=== PATIENT | female | born 1945 | race Two or more races ===

== ENCOUNTER 2016-07-14 13:20 | Emergency (ER) | payer MEDICARE, OTHER ==
[~2016-07-14] VITALS: Ht 165.1 cm; Wt 89.0 kg
[~2016-07-14 13:20] MED LIST: ARIP2TAB8 PO; ASPI-664 PO; CRES10 PO; ERGO500014 PO; ESCI10TA48 PO; LEVO88TA PO; VENL37.56 PO
[2016-07-14 13:23] VITALS: Ht 165.1 cm; Wt 89.0 kg
[2016-07-14] MEDS ORDERED: ACETAMINOPHEN/CODEINE #3 TAB PO ONE (14:00)
[2016-07-14] MEDS ORDERED: ACET1TAB40 PO (15:22)
[2016-07-14] MEDS ORDERED: IBUP400T22 PO (15:22)
--- NOTE | 2016-07-14 15:31 | ERD ---
ER Documentation Chief Complaint Date/Time DATE: 07/14/16 TIME: 15:29 [facility] pain HPI This 71-year-old female sustained a mechanical fall ROS All systems reviewed and are negative except as per history of present illness. Medications Home Meds Active Scripts Acetaminophen with Codeine (Acetaminophen-Cod #3 Tablet) 1 Each Tablet, 1 TAB PO Q6H Y for PAIN, #14 TAB Prov:JANE SEVERINO MD 07/14/16 Ibuprofen* (Motrin*) 400 Mg Tab, 400 MG PO Q6, #15 TAB Prov:JANE SEVERINO MD 07/14/16 Reported Medications Ergocalciferol* (Drisdol* (Vitamin D2)) 50,000 Unit Capsule, 49036 UNIT PO Q7D, CAP 12/06/15 Venlafaxine Hcl* (Effexor*) 37.5 Mg Tablet, 37.5 MG PO DAILY, TAB 12/06/15 Levothyroxine Sodium* (Synthroid*) 88 Mcg Tablet, 88 MCG PO BEFORE BREAKFAST, # 30 TAB 12/06/15 Escitalopram Oxalate* (Escitalopram Oxalate*) 10 Mg Tablet, 10 MG PO DAILY, #30 TAB 12/06/15 Rosuvastatin Calcium* (Crestor*) 10 Mg Tablet, 10 MG PO QHS, #30 TAB 12/06/15 Aspirin* (Aspirin* EC) 81 Mg Tablet.dr, 81 MG PO DAILY, TAB 12/06/15 Aripiprazole* (Abilify*) 2 Mg Tablet, 2 MG PO DAILY, #30 TAB 12/06/15 Allergies Allergies: Coded Allergies: No Known Allergy (Unverified , 12/06/15) PMhx/Soc Hx Cardiac Disorders: Yes (HTN) Hx Alcohol Use: No Hx Substance Use: No Hx Tobacco Use: No Smoking Status: Never smoker Physical Exam Vitals Vital Signs Date Time Temp Pulse Resp B/P Pulse Ox O2 Delivery O2 Flow Rate FiO2 07/14/16 13:23 98.1 80 20 147/66 99 Physical Exam Const: [] Alert, [id number] per Head: Atraumatic Eyes: Normal Conjunctiva ENT: Normal External Ears, Nose and Mouth. Neck: Full range of motion..~ No meningismus. Resp: Clear to auscultation bilaterally Cardio: Regular rate and rhythm, no murmurs Abd: Soft, non tender, non distended. Normal bowel sounds Skin: No petechiae or rashes Back: No midline or flank tenderness Ext: No cyanosis, or edema. Swelling and tenderness primarily left proximal humerus area. There is mild left elbow tenderness. There is no elbow restricted range of motion or weakness. She has restricted range of motion of the left humerus due to pain presumably. No appreciable deficits. There is no bleeding or lacerations. Neur: Awake and alert Psych: Normal Mood and Affect Results 24 hrs Current Medications Medications (Trade) Dose Ordered Sig/Eliazar Route PRN Reason Start Time Stop Time Status Last Admin Dose Admin Acetaminophen/ Codeine Phosphate (Tylenol No.3) 1 tab ONCE ONCE PO 07/14/16 14:00 07/14/16 14:01 DC 07/14/16 15:10 Procedures/MDM X-ray left shoulder 3V Interpreted by me: Bones: Impacted proximal humerus fracture Joints: No dislocation Foreign body: Impression-impacted left proximal humerus fracture X-ray left elbow 3V Interpreted by me: Fat Pads: [Normal] Bones: [No fracture] Joints: [No dislocation] Foreign body: [None]. Impression-normal left elbow x-ray Patient was placed in a left shoulder immobilizer. Patient presents with close proximal humerus fracture without dislocation or significant displacement. She will be discharged home with instructions to follow-up with an orthopedist in the next week. Patient was advised he may need authorization for primary care doctor. There is no signs or symptoms to suggest vascular, neurologic or tendon deficits. Is no evidence of bacterial infection. Departure Diagnosis: Primary Impression: Fracture, humerus Condition: Stable Patient Instructions: Fracture, Shoulder Referrals: HAL LIRA MD [facility] Hours: Mon-Sat 9:00 AM - 5:00 PM Additional Instructions: Proximal humerus fracture seen on x-ray. See orthopedist for further evaluation at the next week. May need authorization from primary care doctor. Recheck otherwise for new or worsening symptoms. JANE SEVERINO MD Jul 14, 2016 15:31
--- NOTE | 2016-07-14 15:55 | RADRPT ---
PROCEDURE: XR Elbow. CLINICAL INDICATION: Fall with pain and proximal humerus fracture TECHNIQUE: AP, lateral and oblique views of the left elbow performed. COMPARISON: Left shoulder series from the same day FINDINGS: There is normal mineralization and alignment. No fracture or osseous lesion is identified. There are normal joints without evidence of arthritis or effusion. The soft tissues are unremarkable. IMPRESSION: Unremarkable examination of the left elbow. RPTAT: EE .Digna Duong MD, MD Date Time Electronically viewed and signed by .Digna Duong MD, on 07/14/2016 15:54 .F/
--- NOTE | 2016-07-14 15:56 | RADRPT ---
PROCEDURE: Left shoulder series. CLINICAL INDICATION: Pain after falling. TECHNIQUE: AP views of the shoulder were performed with internal and external rotation, as well as a transscapular Y view. COMPARISON: Left elbow series from the same day FINDINGS: There is an acute, mildly displaced, left, humeral head fracture. The acromioclavicular joint is intact. The scapula and upper ribs are intact. IMPRESSION: Acute, mildly displaced, left humeral head fracture. RPTAT: QQ .Digna Duong MD, MD Date Time Electronically viewed and signed by .Digna Duong MD, MD on 07/14/2016 15:56 .F/
== END 2016-07-14 15:47 | disposition home or self-care (01) ==
LOC: FTE 13:20
DX: S42.302A Unspecified fracture of shaft of humerus, left arm, initial encounter for closed fracture (principal); I10 Essential (primary) hypertension; W18.39XA Other fall on same level, initial encounter; Y92.9 Unspecified place or not applicable; Z79.82 Long term (current) use of aspirin
CPT/HCPCS: 73030